=== PATIENT | male | born 1970 | race Hispanic/Latino ===

== ENCOUNTER 2017-09-23 20:07 | Inpatient (IN) | payer OTHER ==
[2017-09-23] MEDS ORDERED: Sodium Chloride 0.9% 1,000 ML IV STA (21:22)
--- NOTE | 2017-09-23 21:32 | ED PDOC ---
HPI: Abdomen Time Seen by Provider: 09/23/17 20:40 Chief Complaint (Nursing): Abdominal Pain Chief Complaint (Provider): Abdominal Pain History Per: Patient History/Exam Limitations: no limitations Onset/Duration Of Symptoms: Hrs (Since morning) Current Symptoms Are (Timing): Still Present Additional Complaint(s): 47 y/o male presents to the ED complaining of lower abdominal pain that started since morning and worsened over the course of day. Patient was seen at the local urgent care center and was sent to ED for further evaluation. Patient states that hasn't been able to eat anything all day but denies fever, chills, nausea, vomiting, urinary problems or any further medical complaints. Past Medical History Reviewed: Historical Data, Nursing Documentation, Vital Signs Vital Signs: Last Vital Signs Temp 100.1 F H 09/23/17 20:29 Pulse 96 H 09/23/17 20:29 Resp 16 09/23/17 20:29 BP 141/71 09/23/17 20:29 Pulse Ox 100 09/23/17 22:56 - Medical History PMH: Asthma Denies: Chronic Kidney Disease - Surgical History Surgical History: No Surg Hx - Family History Family History: States: No Known Family Hx - Social History Current smoker - smoking cessation education provided: No (Never ) Alcohol: Social Drugs: Denies - Home Medications Home Medications: Ambulatory Orders Medication Instructions Recorded No Known Home Med 09/23/17 - Allergies Allergies/Adverse Reactions: Allergies Allergy/AdvReac Type Severity Reaction Status Date / Time No Known Allergies Allergy Verified 09/23/17 20:33 Review of Systems ROS Statement: Except As Marked, All Systems Reviewed And Found Negative (As per HPI, otherwise negative) Constitutional: Negative for: Fever, Chills Gastrointestinal: Positive for: Abdominal Pain (Right lower quadrant pain with decreased appetite). Negative for: Nausea, Vomiting Genitourinary Male: Negative for: Dysuria, Frequency, Incontinence, Hematuria Physical Exam - Reviewed Nursing Documentation Reviewed: Yes Vital Signs Reviewed: Yes - Physical Exam Appears: Positive for: Well, Non-toxic, Uncomfortable (mild discomfort) Head Exam: Positive for: ATRAUMATIC, NORMAL INSPECTION, NORMOCEPHALIC Skin: Positive for: Normal Color, Warm, Dry Eye Exam: Positive for: Normal appearance ENT: Positive for: Normal ENT Inspection Neck: Positive for: Normal, Supple Cardiovascular/Chest: Positive for: Regular Rate, Rhythm. Negative for: Murmur Respiratory: Positive for: Normal Breath Sounds. Negative for: Accessory Muscle Use, Respiratory Distress Gastrointestinal/Abdominal: Positive for: Tenderness (Rigth and left lower quadrant tenderness), Distended (mild ) Back: Positive for: Normal Inspection Extremity: Positive for: Normal ROM. Negative for: Deformity Neurologic/Psych: Positive for: Alert, Oriented (x3) - Laboratory Results Result Diagrams: 09/23/17 21:37 09/23/17 21:39 - ECG O2 Sat by Pulse Oximetry: 100 (RA) Pulse Ox Interpretation: Normal Medical Decision Making Medical Decision Making: Time: 21:21 Initial Impression: Acute appendicitis Plan: CT Abdomen/Pelvis EKG CMP CBC w/ differential PTT Prothrombin Time Morphine 2mg IVP Sodium chloride 1L IV Reevaluation Scribe Attestation: Documented by Anita Shaw acting as a scribe for Justine Mckenzie MD. Scribe Attestation: All medical record entries made by the Scribe were at my direction and personally dictated by me. I have reviewed the chart and agree that the record accurately reflects my personal performance of the history, physical exam, medical decision making, and the department course for this patient. I have also personally directed, reviewed, and agree with the discharge instructions and disposition. 22.55 - per [facility] radiologist - 11mm appendix without perforation or abscess 11:45p - case d/w Dr. Talley. [place] to admit to her service. Disposition - Clinical Impression Clinical Impression: Appendicitis - Patient ED Disposition Is Patient to be Admitted: Yes Doctor Will See Patient In The: Hospital - Disposition Disposition: Transfer of Care Disposition Time: 22:54 Condition: STABLE Forms: [employer] (Citizen [place]) - Pt Status Changed To: Hospital Disposition Of: Inpatient - Admit Certification Admit to Inpatient:: After my assessment, the patient will require hospitalization for at least two midnights. This is because of the severity of symptoms shown, intensity of services needed, and/or the medical risk in this patient being treated as an outpatient. - POA Present On Arrival: None
[2017-09-23 21:42] LABS: BASO % 0.2 % (0.0-2.0); EOS % 0.1 % (0.0-4.0); LYMPH # 0.7 K/uL (1.0-4.3); LYMPH % 4.2 % (20.0-40.0); MEAN CELL VOLUME 78.9 fl (80.0-94.0); MEAN CORPUSCULAR HEMOGLOBIN 25.2 pg (27.0-31.0); MEAN CORPUSCULAR HGB CONC 31.9 g/dL (33.0-37.0); MEAN PLATELET VOLUME 8.6 fl (7.2-11.7); MONO # 0.9 K/uL (0.0-0.8); MONO % 5.1 % (0.0-10.0); NEUT # 15.7 K/uL (1.8-7.0); NEUT % 90.4 % (50.0-75.0); NRBC % 0.3 % (0.0-0.0); PLATELET COUNT 160 K/uL (130-400); RBC 5.97 Mil/uL (4.40-5.90); RED CELL DISTRIBUTION WIDTH 14.5 % (11.5-14.5); WHITE BLOOD COUNT 17.3 K/uL (4.8-10.8)
[2017-09-23] MEDS ORDERED: Iohexol 300 100 ML IJ ONE (21:53)
[2017-09-23] MEDS ORDERED: Sodium Chloride 0.9% 50 ML IV ONE (21:53)
[2017-09-23 21:57] LABS: PARTIAL THROMBOPLASTIN TIME 34.6 Seconds (25.6-37.1); PROTHROMBIN TIME 11.6 Seconds (9.8-13.1)
[2017-09-23 22:04] LABS: ALB/GLOB RATIO 1.6 (1.0-2.1); ALBUMIN 4.5 g/dL (3.5-5.0); ALT/SGPT 54 U/L (21-72); AST/SGOT 25 U/L (17-59); BLOOD UREA NITROGEN 14 mg/dl (9-20); CALCIUM 9.7 mg/dL (8.4-10.2); GFR AFRICAN-AMERICAN > 60; GFR NON-AFRICAN AMERICAN > 60
[2017-09-23 22:36] LABS: BANDS 2 % (0-2); EOSINOPHIL 1 % (0-7); HYPOCHROMIC SLIGHT; LYMPHOCYTE 9 % (20-50); MICROCYTOSIS SLIGHT; MONOCYTE 5 % (0-10); NEUTROPHIL 83 % (42-75); PLATELET ESTIMATE NORMAL (NORMAL); TOTAL CELLS COUNTED 100
[2017-09-23] MEDS ORDERED: Piperacillin/Tazobact 3.375 GM in Sodium Chloride 0.9% 100 ML IVPB STA (22:54)
[2017-09-23] MEDS ORDERED: Piperacillin/Tazobact 3.375 gm Inj IVPB ONE (23:17)
[2017-09-24] MEDS ORDERED: HYDROmorphone 0.5 mg/0.5 ml ISec IVP PRN (00:05)
[2017-09-24] MEDS: Sodium Chloride 0.9% 1,000 ML IV SCH ×2 (00:29→09:16)
--- NOTE | 2017-09-24 05:04 | CP.PCM.HP ---
History of Present Illness - History of Present Illness History of Present Illness: Surgery 47 M w pmh of asthma came w low abd pain that started yesterday. Pain is worsen and eating made it worse. Denies C/N/V/D/Cp/SOB/hematochezia/hematemesis/sick contact/ recent travel. CT of the abd shows appendicitis w 11mm appendix w/o perforation or abscess. WBC is 17 w left shift. Temp in ED was 100.1. Pt is admitted to evaluate for appendicitis. PMH : asthma Present on Admission - Present on Admission Any Indicators Present on Admission: No Review of Systems - Review of Systems Review of Systems: See HPI Past Patient History - Past Medical History & Family History Past Medical History?: Yes - Past Social History Smoking Status: Never Smoked - CARDIAC Hx Cardiac Disorders: No - PULMONARY Hx Respiratory Disorders: Yes Hx Asthma: Yes - NEUROLOGICAL Hx Neurological Disorder: No - HEENT Hx HEENT Problems: No - RENAL Hx Chronic Kidney Disease: No - ENDOCRINE/METABOLIC Hx Endocrine Disorders: No - HEMATOLOGICAL/ONCOLOGICAL Hx Blood Disorders: No - INTEGUMENTARY Hx Dermatological Problems: No - MUSCULOSKELETAL/RHEUMATOLOGICAL Hx Musculoskeletal Disorders: No Hx Falls: No - GASTROINTESTINAL Hx Gastrointestinal Disorders: No - GENITOURINARY/GYNECOLOGICAL Hx Genitourinary Disorders: No - PSYCHIATRIC Hx Psychophysiologic Disorder: No - SURGICAL HISTORY Hx Surgeries: No - ANESTHESIA Hx Anesthesia: No Hx Anesthesia Reactions: No Meds Allergies/Adverse Reactions: Allergies Allergy/AdvReac Type Severity Reaction Status Date / Time No Known Allergies Allergy Verified 09/23/17 20:33 Physical Exam - Constitutional Appears: Non-toxic - Head Exam Head Exam: ATRAUMATIC, NORMAL INSPECTION, NORMOCEPHALIC - Eye Exam Eye Exam: EOMI, Normal appearance, PERRL Pupil Exam: NORMAL ACCOMODATION, PERRL - ENT Exam ENT Exam: Mucous Membranes Moist, Normal Exam - Neck Exam Neck exam: Positive for: Normal Inspection - Respiratory Exam Respiratory Exam: Clear to Auscultation Bilateral, NORMAL BREATHING PATTERN - Cardiovascular Exam Cardiovascular Exam: REGULAR RHYTHM - GI/Abdominal Exam GI & Abdominal Exam: Guarding, Soft, Tenderness. absent: Distended, Firm, Hernia, Mass Additional comments: TTP low abd - Extremities Exam Extremities exam: Positive for: normal inspection - Back Exam Back exam: NORMAL INSPECTION - Neurological Exam Neurological exam: Alert, CN II-XII Intact, Normal Gait, Oriented x3, Reflexes Normal - Psychiatric Exam Psychiatric exam: Normal Affect, Normal Mood - Skin Skin Exam: Dry, Intact, Normal Color, Warm Results - Vital Signs Recent Vital Signs: Last Vital Signs Temp 98.3 F 09/24/17 00:30 Pulse 87 09/24/17 01:06 Resp 19 09/24/17 01:06 BP 114/68 09/24/17 00:30 Pulse Ox 98 09/24/17 01:06 - Labs Result Diagrams: 09/23/17 21:37 09/23/17 21:39 Labs: Laboratory Results - last 24 hr 09/23/17 09/23/17 09/23/17 21:37 21:39 21:39 WBC 17.3 H RBC 5.97 H Hgb 15.0 Hct 47.1 MCV 78.9 L MCH 25.2 L MCHC 31.9 L RDW 14.5 Plt Count 160 MPV 8.6 Neut % (Auto) 90.4 H Lymph % (Auto) 4.2 L [place] % (Auto) 5.1 Eos % (Auto) 0.1 Baso % (Auto) 0.2 Neut # 15.7 H Lymph # 0.7 L [place] # 0.9 H Eos # 0.0 Baso # 0.0 Neutrophils % (Manual) 83 H Band Neutrophils % 2 Lymphocytes % (Manual) 9 L Monocytes % (Manual) 5 Eosinophils % (Manual) 1 Platelet Estimate Normal Hypochromasia (manual) Slight Microcytosis (manual) Slight PT 11.6 INR 1.0 APTT 34.6 Sodium 138 Potassium 3.3 L Chloride 100 Carbon Dioxide 32 H Anion Gap 9 L BUN 14 Creatinine 0.8 Est GFR ( Amer) > 60 Est GFR (Non-Af Amer) > 60 Random Glucose 109 Calcium 9.7 Total Bilirubin 0.7 AST 25 ALT 54 Alkaline Phosphatase 65 Total Protein 7.4 Albumin 4.5 Globulin 2.9 Albumin/Globulin Ratio 1.6 Assessment & Plan - Assessment and Plan (Free Text) Assessment: Appendicitis -OR this AM for lap appy -NPO -ABX -IVF -Pain control -Nausea control -DVT ppx TYLER Talley
[2017-09-24] MEDS: metroNIDAZOLE 500mg/100ml NS 100 ML IVPB SCH ×2 (08:19→20:37)
[2017-09-24] MEDS: Ciprofloxacin 200mg/100ml D5W 100 ML IVPB SCH ×2 (08:19→21:41)
[2017-09-24] MEDS ORDERED: Lidocaine 4% (Laryng-O-Jet) Kit MM ONE ×2 (09:03→09:08)
[2017-09-24] MEDS ORDERED: Rocuronium 10 mg/ml (5 ml) ONE (09:04)
[2017-09-24] MEDS ORDERED: Succinylcholine 200 mg/10 ml Inj IV ONE (09:04)
--- NOTE | 2017-09-24 10:08 | CT ---
PROCEDURE: CT Abdomen and Pelvis with contrast HISTORY: COMPARISON: No priors TECHNIQUE: Contrast dose: 95 millimeters omni 300 Radiation dose: Total exam DLP = 706 mGy-cm. This CT exam was performed using one or more of the following dose reduction techniques: Automated exposure control, adjustment of the mA and/or kV according to patient size, and/or use of iterative reconstruction technique. FINDINGS: LOWER THORAX: Minimal subsegmental atelectasis is seen at the left lung base. No pleural effusion or other infiltrate is seen. Visualized distal esophagus is unremarkable. LIVER: There is a small round smoothly marginated low-density cyst in the right lobe of the right lobe of the liver measuring 1 cm. Remainder of the liver is normal in size and density without solid mass or intrahepatic ductal dilatation. GALLBLADDER AND BILE DUCTS: Unremarkable. PANCREAS: Unremarkable. No gross lesion or ductal dilatation. SPLEEN: Unremarkable. ADRENALS: Unremarkable. No mass. KIDNEYS AND URETERS: There is a probable small round smoothly marginated hypodense left renal parapelvic cysts. No hydronephrosis or perinephric changes are seen. No renal calculus is noted. VASCULATURE: Unremarkable. No aortic aneurysm. BOWEL: No appreciable acute inflammatory change within the small bowel or colon APPENDIX: There is an abnormal appendix appreciated with enlargement and dilatation measuring up to 10-11 millimeters. Mild periappendiceal inflammatory changes are identified without focal fluid collection to suggest abscess or perforation. There may also be some mild enhancement of the wall of the appendix. Findings are consistent with appendicitis. PERITONEUM: Unremarkable. No free fluid. No free air. LYMPH NODES: No retroperitoneal adenopathy is seen. A few small scattered lymph nodes are seen in the right lower quadrant. BLADDER: Unremarkable. REPRODUCTIVE: Unremarkable. BONES: No acute fracture. OTHER FINDINGS: None. IMPRESSION: Appendicitis. Mild periappendiceal inflammatory changes without focal fluid to suggest abscess or perforation. Finding agrees with preliminary report provided by the on-call radiologist.
[2017-09-24] MEDS ORDERED: Neostigmine Methylsulfate 2 MG/2 ML ML IV ONE (11:07)
[2017-09-24] MEDS ORDERED: Neostigmine Methylsulfate 3mg/3ml Syringe IV ONE (11:07)
[2017-09-24] MEDS ORDERED: Lidocaine 2% Jelly (Uro-Jet) ONE (11:12)
[2017-09-24] MEDS ORDERED: Propofol 10 mg/ml Inj (20 ML) ONE (11:13)
[2017-09-24] MEDS ORDERED: Midazolam 2 MG/2 ML VIAL ONE (11:15)
[2017-09-24] MEDS ORDERED: Lactated Ringer's 1,000 ML IV ONE ×2 (11:15→12:14)
--- NOTE | 2017-09-24 12:14 | CARD ---
APPROVED REPORT EKG Measurement Heart [id number] <Conclusion> Normal sinus rhythm Right axis deviation Nonspecific intraventricular block Abnormal ECG
[2017-09-24] MEDS ORDERED: Oxycodone/Acetaminophen 5/325 mg Tab PO PRN (12:19)
--- NOTE | 2017-09-24 12:19 | PCM.SURG1 ---
Surgeon's Initial Post Op Note - Surgeon's Notes Surgeon: Dr. Talley Heat And Vent Aircraft Mechanic: Dr. Pizarro PGY2 Type of Anesthesia: General Endo Pre-Operative Diagnosis: acute appendicitis Operative Findings: see dictation Post-Operative Diagnosis: same Operation Performed: laparoscopic appendectomy Specimen/Specimens Removed: appendix Estimated Blood Loss: EBL {In ML}: 10 Post-Op Condition: Good Date of Surgery/Procedure: 09/24/17 Time of Surgery/Procedure: 11:15
[2017-09-24] MEDS ORDERED: Lactated Ringer's 1,000 ML IV SCH (12:30)
[2017-09-24] MEDS: HYDROmorphone 0.5 mg/0.5 ml ISec IVP PRN ×2 (13:05→13:30)
[2017-09-25] MEDS ORDERED: Benzocaine/Menthol (Cepacol) Lozenge PO PRN (00:18)
[2017-09-25 06:43] VITALS: PULSE 62
[2017-09-25 07:57] VITALS: BP 114/65; RESP 18; TEMP 98.1; O2SAT 99
[2017-09-25] MEDS: Ciprofloxacin 200mg/100ml D5W 100 ML IVPB SCH (08:09)
[2017-09-25] MEDS: metroNIDAZOLE 500mg/100ml NS 100 ML IVPB SCH (08:09)
[2017-09-25 08:40] LABS: BLOOD UREA NITROGEN 12 mg/dl (9-20); CALCIUM 9.1 mg/dL (8.4-10.2); GFR AFRICAN-AMERICAN > 60; GFR NON-AFRICAN AMERICAN > 60
[2017-09-25] MEDS ORDERED: Potassium Chloride 20 mEq ER Tab PO ONE (08:52)
--- NOTE | 2017-09-25 09:05 | CP.PCM.DIS ---
Provider - Provider Date of Admission: 09/23/17 23:39 Attending physician: Karin Talley MD Primary care physician: None Consults: Admitted to surgery service- Dr. Talley Time Spent in preparation of Discharge (in minutes): 35 Diagnosis - Discharge Diagnosis (1) S/P appendectomy Status: Acute Hospital Course - Lab Results Lab Results: Most Recent Lab Values WBC 17.3 K/uL (4.8-10.8) H 09/23/17 21:37 RBC 5.97 Mil/uL (4.40-5.90) H 09/23/17 21:37 Hgb 15.0 g/dL (12.0-18.0) 09/23/17 21:37 Hct 47.1 % (35.0-51.0) 09/23/17 21:37 MCV 78.9 fl (80.0-94.0) L 09/23/17 21:37 MCH 25.2 pg (27.0-31.0) L 09/23/17 21:37 MCHC 31.9 g/dL (33.0-37.0) L 09/23/17 21:37 RDW 14.5 % (11.5-14.5) 09/23/17 21:37 Plt Count 160 K/uL (130-400) 09/23/17 21:37 MPV 8.6 fl (7.2-11.7) 09/23/17 21:37 Neut % (Auto) 90.4 % (50.0-75.0) H 09/23/17 21:37 Lymph % (Auto) 4.2 % (20.0-40.0) L 09/23/17 21:37 [place] % (Auto) 5.1 % (0.0-10.0) 09/23/17 21:37 Eos % (Auto) 0.1 % (0.0-4.0) 09/23/17 21:37 Baso % (Auto) 0.2 % (0.0-2.0) 09/23/17 21:37 Neut # 15.7 K/uL (1.8-7.0) H 09/23/17 21:37 Lymph # 0.7 K/uL (1.0-4.3) L 09/23/17 21:37 [place] # 0.9 K/uL (0.0-0.8) H 09/23/17 21:37 Eos # 0.0 K/uL (0.0-0.7) 09/23/17 21:37 Baso # 0.0 K/uL (0.0-0.2) 09/23/17 21:37 Neutrophils % (Manual) 83 % (42-75) H 09/23/17 21:37 Band Neutrophils % 2 % (0-2) 09/23/17 21:37 Lymphocytes % (Manual) 9 % (20-50) L 09/23/17 21:37 Monocytes % (Manual) 5 % (0-10) 09/23/17 21:37 Eosinophils % (Manual) 1 % (0-7) 09/23/17 21:37 Platelet Estimate Normal (NORMAL) 09/23/17 21:37 Hypochromasia (manual) Slight 09/23/17 21:37 Microcytosis (manual) Slight 09/23/17 21:37 PT 11.6 Seconds (9.8-13.1) 09/23/17 21:39 INR 1.0 (0.9-1.2) 09/23/17 21:39 APTT 34.6 Seconds (25.6-37.1) 09/23/17 21:39 Sodium 137 mmol/l (132-148) 09/25/17 07:20 Potassium 3.3 MMOL/L (3.6-5.0) L 09/25/17 07:20 Chloride 99 mmol/L (98-107) 09/25/17 07:20 Carbon Dioxide 33 mmol/L (22-30) H 09/25/17 07:20 Anion Gap 8 (10-20) L 09/25/17 07:20 BUN 12 mg/dl (9-20) 09/25/17 07:20 Creatinine 0.9 mg/dl (0.8-1.5) 09/25/17 07:20 Est GFR ( Amer) > 60 09/25/17 07:20 Est GFR (Non-Af Amer) > 60 09/25/17 07:20 Random Glucose 97 mg/dL (75-110) 09/25/17 07:20 Calcium 9.1 mg/dL (8.4-10.2) 09/25/17 07:20 Total Bilirubin 0.7 mg/dl (0.2-1.3) 09/23/17 21:39 AST 25 U/L (17-59) 09/23/17 21:39 ALT 54 U/L (21-72) 09/23/17 21:39 Alkaline Phosphatase 65 U/L (38-126) 09/23/17 21:39 Total Protein 7.4 G/DL (6.3-8.2) 09/23/17 21:39 Albumin 4.5 g/dL (3.5-5.0) 09/23/17 21:39 Globulin 2.9 gm/dL (2.2-3.9) 09/23/17 21:39 Albumin/Globulin Ratio 1.6 (1.0-2.1) 09/23/17 21:39 - Hospital Course Hospital Course: Pt admitted to hospital for abdominal pain due to acute appendicitis. Pt taken to OR for laparoscopic appendectomy on day of admission, tolerated procedure well. Was able to eat/tolerated diet post op. Pt kept for observation overnight , pain well controlled, passing flatus, no nausea or emesis, fevers or chills. Doing well post op, given post op wound care instructions at bedside. Pt stable and ready for discharge home. Diagnoses: Appendicitis s/p laparoscopic appendectomy - Date & Time of H&P Date of H&P: 09/24/17 Time of H&P: 05:00 Discharge Exam - Head Exam Head Exam: ATRAUMATIC, NORMAL INSPECTION, NORMOCEPHALIC - Eye Exam Eye Exam: EOMI, Normal appearance - ENT Exam ENT Exam: Mucous Membranes Moist, Normal Exam - Neck Exam Neck exam: Full Rom, Normal Inspection - Respiratory Exam Respiratory Exam: NORMAL BREATHING PATTERN, UNREMARKABLE - GI/Abdominal Exam GI & Abdominal Exam: Soft, Tenderness (over surgical sites, mild). absent: Distended, Firm, Guarding, Rebound, Rigid Additional comments: 3 surgical sites in LLQ and umbilicus with bandaids in place, no strike through noted. - Extremities Exam Extremities exam: normal inspection - Neurological Exam Neurological exam: Alert, CN II-XII Intact, Oriented x3 - Psychiatric Exam Psychiatric exam: Normal Affect, Normal Mood - Skin Skin Exam: Dry, Intact, Normal Color, Warm Discharge Plan - Follow Up Plan Condition: STABLE Disposition: HOME/ ROUTINE Instructions: Appendicitis (DC), Laparoscopic Appendectomy (DC) Additional Instructions: You may shower tomorrow after removing the outer bandaids. As per our bedside discussion- do not remove the special white tape from the incision sites, you may shower with it in place, washing gently with soap and water. Do not site in hot water/hot tubes, shower only. Do not pull off the tape, it will fall off on it's own. Do not lift more than 10lbs until seen by Dr. Talley. Make an appointment to follow up with her in the office in 1-2 weeks. As discussed, please take a potassium supplement to help with muscle cramping. You may resume a normal diet. Ok to take over the counter pain medications as needed for muscle soreness. Follow up with your primary care provider in 1-2 weeks after discharge from hospital. Referrals: Karin Talley MD [Staff Provider] -
--- NOTE | 2017-09-28 19:40 | OP ---
PROCEDURE DATE: 09/24/2017 PREOPERATIVE DIAGNOSIS: Acute appendicitis. POSTOPERATIVE DIAGNOSIS: Acute appendicitis. PROCEDURE: Laparoscopic appendectomy. SURGEON: Karin Talley M.D. FIRE AND SAFETY HELPER: Dr Ramírez ANESTHESIA: General. DESCRIPTION OF OPERATION: With the patient in the supine position under adequate general anesthesia, the abdomen was prepped and draped in the usual sterile manner. Veress needle puncture was performed at the umbilicus with insufflation to 15 cm water pressure of CO2, and a 5-mm laparoscopic trocar was inserted via an infraumbilical incision. Under direct vision, 5 and 12 mm trocars were inserted in the left lower quadrant. The right lower quadrant was inspected and the appendix was identified lying adherent to the right iliac fossa. It was grossly distended and there was inflammatory reaction around it. There was no gross perforation although as it was manipulated and a small quantity of brown fluid was released, which was promptly suctioned. The appendix was completely freed and the mesoappendix was dissected and divided with an Endo-JOCELYNE stapler. The appendix was then amputated also using the Endo-JOCELYNE stapler proximal to a palpable appendicolith. The appendix was placed in a specimen retrieval bag and removed via the 12-mm port site. The right lower quadrant and pelvis were irrigated and suctioned. The pneumoperitoneum was released and the trocars were removed. The 12-mm port site was closed with a [id number] fascial suture of 0 Vicryl. All incisions were closed with 4-0 Monocryl subcuticular sutures and Steri-Strips. Dry sterile dressings were applied. The patient tolerated the procedure well and transferred to recovery room in stable condition. Estimated blood loss for the procedure was 10 mL. Karin Talley MD [facility]
== END 2017-09-25 12:38 | disposition home or self-care (01) | DRG 343 ==
LOC: H.ER 20:07 → H.ERHOLD 23:39 → H.MEDSURG1 09-24 00:24
PROVIDERS: ADMIT Specialist; ATTEND Specialist
PROC: 0DTJ4ZZ Resection of Appendix, Percutaneous Endoscopic Approach (ICD-10-PCS; principal; 2017-09-24 12:00)
DX: K35.80 Unspecified acute appendicitis (principal); J45.909 Unspecified asthma, uncomplicated